=== PATIENT | male | born 2000 | race African-American/Black ===

== ENCOUNTER 2022-10-12 13:05 | Outpatient (RCR) | payer OTHER | END 2022-10-15 | disposition home or self-care (01) | PROVIDERS: ATTEND Family Medicine Sports Medicine | DX: M25.562 Pain in left knee (principal) ==

== ENCOUNTER 2022-11-05 14:30 | Outpatient (RCR) | payer OTHER | END 2022-11-14 | disposition home or self-care (01) | PROVIDERS: ATTEND Family Medicine Sports Medicine | DX: M25.562 Pain in left knee (principal); I10 Essential (primary) hypertension ==

== ENCOUNTER 2022-12-01 13:03 | Outpatient (RCR) | payer OTHER | END 2022-12-15 | disposition home or self-care (01) | PROVIDERS: ATTEND Family Medicine Sports Medicine | DX: M25.562 Pain in left knee (principal); I10 Essential (primary) hypertension ==